=== PATIENT | female | born 1970 | race Two or more races ===

== ENCOUNTER 2017-05-03 05:28 | Day surgery (SDC) | payer MEDICAID ==
[~2017-05-03] VITALS: Ht 160 cm; Wt 80.7 kg
[~2017-05-03 05:28] MED LIST: ASPI-515 PO; CETI10TA24 PO; Collagen PO; DETOX PO; HYDR-3240 PO; MECL25TA4 PO; MULT-230 PO; NAPR500T3 PO; ONDA4TAB13 SL; OXYC1TAB7 PO; SIMV10TA3 PO; [UNRECOGNIZED DRUG - OTHER] PO; [UNRECOGNIZED DRUG - OTHER] PO
[2017-05-03] MEDS ORDERED: LACTATED RINGERS 1,000 ML IV SCH (06:12)
[2017-05-03] MEDS ORDERED: BUPIVACAINE/PF-EPI 0.25% 1:200K ONE ×2 (06:27→08:14)
[2017-05-03] MEDS ORDERED: FLUORESCEIN SODIUM 500 MG/5 ML ONE (06:27)
[2017-05-03 06:34] VITALS: BP 119/80
[2017-05-03] MEDS ORDERED: FENTANYL PF 100 MCG/2ML ONE ×2 (06:52→09:25)
[2017-05-03] MEDS ORDERED: MIDAZOLAM 1 MG/ML, 2ML ONE (06:52)
[2017-05-03] MEDS ORDERED: HYDROmorphone 2 MG/ML, 1ML ONE (06:52)
[2017-05-03] MEDS ORDERED: SUCCINYLCHOLINE 20 MG/ML, 10ML ONE (07:06)
[2017-05-03] MEDS ORDERED: ONDANSETRON 2MG/ML, 2ML ONE ×2 (07:06→11:45)
[2017-05-03] MEDS ORDERED: PROPOFOL 10 MG/ML, 20ML ONE (07:06)
[2017-05-03] MEDS ORDERED: CEFAZOLIN 1,000 MG ONE (07:06)
[2017-05-03] MEDS ORDERED: ROCURONIUM 10 MG/ML ONE (07:06)
[2017-05-03] MEDS ORDERED: DEXAMETHASONE 4 MG/ML, 1ML ONE (07:06)
[2017-05-03] MEDS ORDERED: KETOROLAC 30 MG/1 ML ONE (07:06)
[2017-05-03] MEDS ORDERED: HYDROmorphone 1 MG/ML, 1ML IV PRN (07:30)
[2017-05-03] MEDS ORDERED: LABETALOL 5MG/ML, 20ML IV PRN (07:30)
[2017-05-03] MEDS ORDERED: ACETAMINOPHEN 325 MG TABLET PO PRN (07:30)
[2017-05-03] MEDS ORDERED: OXYcodone 5 MG/5 ML ORAL.SOL UDC PO PRN (07:30)
[2017-05-03] MEDS ORDERED: METOCLOPRAMIDE 5 MG/ML, 2ML IV PRN (07:30)
[2017-05-03] MEDS ORDERED: ONDANSETRON 2MG/ML, 2ML IVPush PRN ×2 (07:30→12:00)
[2017-05-03] MEDS ORDERED: hydrALAzine 20 MG/ML, 1ML IV PRN (07:30)
[2017-05-03] MEDS ORDERED: ACETAMINOPHEN 650 MG/20.3 ML UDC ONE (09:25)
[2017-05-03] MEDS ORDERED: OXYcodone 5 MG/5 ML ORAL.SOL UDC ONE (09:25)
[2017-05-03] MEDS: FENTANYL PF 100 MCG/2ML IV PRN ×3 (09:28→10:05)
[2017-05-03] MEDS ORDERED: OXYcodone/APAP 5/325MG TABLET PO PRN (12:00)
[2017-05-03] MEDS ORDERED: IBUPROFEN 600 MG TABLET PO SCH (16:00)
== END 2017-05-03 13:50 ==
LOC: OUT 05:28 → MERGE 07:00 → OUT 13:50
PROVIDERS: ATTEND Obstetrics & Gynecology
DX: D25.9 Leiomyoma of uterus, unspecified (principal); N94.89 Other specified conditions associated with female genital organs and menstrual cycle; Z98.51 Tubal ligation status; E66.9 Obesity, unspecified; Z68.31 Body mass index [BMI] 31.0-31.9, adult
CPT/HCPCS: 58552; 88307; J0330; J0690; J1100; J1170; J1885; J2250; J2405; J2704; J3010; J7120; S2900

== ENCOUNTER 2017-12-17 13:28 | Emergency (ER) | payer MEDICAID, OTHER ==
[~2017-12-17] VITALS: Ht 162.6 cm; Wt 85.0 kg
[~2017-12-17 13:28] MED LIST changes: +NAPR-685 PO; -NAPR500T3 PO
[2017-12-17] MEDS ORDERED: MECLIZINE CHEWABLE 25 MG TAB ONE (14:50)
[2017-12-17] MEDS ORDERED: METOCLOPRAMIDE 5 MG/ML, 2ML ONE (14:51)
[2017-12-17] MEDS ORDERED: DIPHENHYDRAMINE 50 MG/ML, 1ML ONE (14:51)
[2017-12-17] MEDS ORDERED: METOCLOPRAMIDE 5 MG/ML, 2ML IVPush ONE (15:00)
[2017-12-17] MEDS ORDERED: DIPHENHYDRAMINE 50 MG/ML, 1ML IVPush ONE (15:00)
[2017-12-17] MEDS ORDERED: SODIUM CHLORIDE FLUSH 10ML SYR IVF ONE (15:00)
[2017-12-17] MEDS ORDERED: MECLIZINE CHEWABLE 25 MG TAB PO ONE (15:00)
[2017-12-17] MEDS ORDERED: SODIUM CHLORIDE 0.9% 1,000ML IVBOLUS ONE (15:00)
[2017-12-17 15:17] LABS: BASOPHILS # (AUTO) 0.04 x10^3/uL (0-0.1); BASOPHILS % (AUTO) 1 % (0-1); EOSINOPHILS # (AUTO) 0.05 x10^3/uL (0-0.4); EOSINOPHILS % (AUTO) 1 % (1-7); LYMPHOCYTES # (AUTO) 2.06 x10^3/uL (1-3.4); LYMPHOCYTES % (AUTO) 27 % (22-44); MD NO; MEAN CORPUSCULAR HEMOGLOBIN 29.9 pg (27.0-34.8); MEAN CORPUSCULAR HGB CONC 33.8 g/dL (32.4-35.8); MEAN CORPUSCULAR VOLUME 88.6 fL (80-100); MEAN PLATELET VOLUME 7.6 fL (7.4-10.4); MONOCYTES # (AUTO) 0.31 x10^3/uL (0.2-0.8); MONOCYTES % (AUTO) 4 % (2-9); NEUTROPHILS # (AUTO) 5.12 x10^3/uL (1.8-6.8); NEUTROPHILS % (AUTO) 68 % (42-75); PLATELET COUNT 302 x10^3/uL (130-400); RED BLOOD COUNT 4.98 x10^6/uL (3.82-5.3); RED CELL DISTRIBUTION WIDTH 12.9 % (9.6-15.2)
[2017-12-17 15:19] LABS: ALANINE AMINOTRANSFERASE 25 U/L (12-78); ALBUMIN 3.9 g/dL (3.4-5.0); ANION GAP 7 mmol/L (5-15); CALCIUM 9.2 mg/dL (8.5-10.1); CHLORIDE 107 mmol/L (98-107); CREATININE 0.73 mg/dL (0.55-1.02)
[2017-12-17 15:21] LABS: ALKALINE PHOSPHATASE 94 U/L (45-117); BILIRUBIN,TOTAL 0.4 mg/dL (0.2-1.0); TOTAL PROTEIN 8.4 g/dL (6.4-8.2)
[2017-12-17 15:44] LABS: MICROSCOPIC NOT IND
[2017-12-17 15:49] LABS: CULTURE INDICATED? NO
[2017-12-17 16:15] VITALS: BP 113/53
== END 2017-12-17 16:40 | disposition home or self-care (01) ==
LOC: ED 16:02
DX: R51 Headache (principal); R42 Dizziness and giddiness; H93.12 Tinnitus, left ear; R11.2 Nausea with vomiting, unspecified
CPT/HCPCS: 36415; 70450; 80053; 81003; 85025; 93005; 96361; 96374; 99285; J1200; J2765; J7030

== ENCOUNTER 2017-12-19 09:57 | Inpatient (IN) | payer OTHER ==
[~2017-12-19] VITALS: Ht 160 cm; Wt 83.1 kg
[2017-12-19 10:59] LABS: ALBUMIN 3.8 g/dL (3.4-5.0); ANION GAP 5 mmol/L (5-15); CALCIUM 8.9 mg/dL (8.5-10.1); CHLORIDE 110 mmol/L (98-107)
[2017-12-19 11:05] LABS: ALANINE AMINOTRANSFERASE 21 U/L (12-78); ALKALINE PHOSPHATASE 95 U/L (45-117); BILIRUBIN,TOTAL 0.3 mg/dL (0.2-1.0); CREATININE 0.69 mg/dL (0.55-1.02); TOTAL PROTEIN 8.5 g/dL (6.4-8.2); TROPONIN I < 0.015 ng/mL (0.000-0.045)
[2017-12-19 12:21] LABS: BASOPHILS # (AUTO) 0.02 x10^3/uL (0-0.1); BASOPHILS % (AUTO) 0 % (0-1); EOSINOPHILS # (AUTO) 0.09 x10^3/uL (0-0.4); EOSINOPHILS % (AUTO) 2 % (1-7); LYMPHOCYTES # (AUTO) 1.97 x10^3/uL (1-3.4); LYMPHOCYTES % (AUTO) 35 % (22-44); MD NO; MEAN CORPUSCULAR HGB CONC 33.8 g/dL (32.4-35.8); MEAN CORPUSCULAR VOLUME 88.7 fL (80-100); MEAN PLATELET VOLUME 7.7 fL (7.4-10.4); MONOCYTES # (AUTO) 0.23 x10^3/uL (0.2-0.8); MONOCYTES % (AUTO) 4 % (2-9); NEUTROPHILS # (AUTO) 3.33 x10^3/uL (1.8-6.8); NEUTROPHILS % (AUTO) 59 % (42-75); PLATELET COUNT 270 x10^3/uL (130-400); RED BLOOD COUNT 4.69 x10^6/uL (3.82-5.3); RED CELL DISTRIBUTION WIDTH 12.6 % (9.6-15.2)
[2017-12-19] MEDS ORDERED: OXYcodone/APAP 5/325MG TABLET ONE (12:50)
[2017-12-19] MEDS ORDERED: OXYcodone/APAP 5/325MG TABLET PO ONE (13:00)
[2017-12-19] MEDS ORDERED: ONDANSETRON ODT 4 MG PO PRN (15:00)
[2017-12-19] MEDS ORDERED: ONDANSETRON 2MG/ML, 2ML IVPush PRN (15:00)
[2017-12-19] MEDS ORDERED: KETOROLAC 30 MG/1 ML IVPush PRN (15:00)
[2017-12-19] MEDS ORDERED: ACETAMINOPHEN 325 MG TABLET PO PRN (15:00)
[2017-12-19] MEDS ORDERED: METHOCARBAMOL 500 MG TABLET PO ONE (15:00)
[2017-12-19 15:21] LABS: FREE T4 (FREE THYROXINE) 0.95 ng/dL (0.76-1.46); THYROID STIMULATING HORMONE 2.15 mIU/L (0.358-3.740)
[2017-12-19 15:52] VITALS: BP 116/80
[2017-12-19] MEDS: METHOCARBAMOL 750 MG TABLET PO SCH ×2 (16:00→21:37)
[2017-12-19] MEDS: SODIUM CHLORIDE 0.9% 1,000 ML IV SCH ×2 (16:40→23:50)
[2017-12-19] MEDS ORDERED: MECL-76 PO (16:46)
[2017-12-19] MEDS ORDERED: IBUP200T64 PO (16:46)
[2017-12-19] MEDS ORDERED: NITROGLYCERIN 0.4 MG BOTTLE (25 TABS) SL PRN (17:00)
[2017-12-19] MEDS ORDERED: NITROGLYCERIN 0.4 MG/SPRAY SL PRN (17:00)
[2017-12-19] MEDS ORDERED: ENOXAPARIN 40 MG/0.4 ML SQ SCH (17:30)
[2017-12-19 17:35] LABS: TROPONIN I < 0.015 ng/mL (0.000-0.045)
[2017-12-19] MEDS: METOCLOPRAMIDE 5 MG/ML, 2ML IVPush PRN (18:22)
[2017-12-19] MEDS: DIPHENHYDRAMINE 50 MG/ML, 1ML IVPush PRN (18:22)
[2017-12-19 20:00] VITALS: BP 100/64
[2017-12-19] MEDS ORDERED: MECLIZINE CHEWABLE 25 MG TAB PO PRN (20:00)
[2017-12-19 21:00] LABS: HEMOGLOBIN A1C 6.6 % (4.2-6.3)
[2017-12-19 23:23] LABS: TROPONIN I < 0.015 ng/mL (0.000-0.045)
[2017-12-20 03:10] VITALS: BP 109/73
[2017-12-20] MEDS: METOCLOPRAMIDE 5 MG/ML, 2ML IVPush PRN (03:22)
[2017-12-20] MEDS: DIPHENHYDRAMINE 50 MG/ML, 1ML IVPush PRN (03:23)
[2017-12-20] MEDS: METHOCARBAMOL 750 MG TABLET PO SCH ×2 (05:53→12:51)
[2017-12-20] MEDS ORDERED: ASPIRIN 325 MG TABLET EC PO SCH (06:00)
[2017-12-20 06:05] LABS: BASOPHILS # (AUTO) 0.06 x10^3/uL (0-0.1); BASOPHILS % (AUTO) 1 % (0-1); EOSINOPHILS # (AUTO) 0.11 x10^3/uL (0-0.4); EOSINOPHILS % (AUTO) 2 % (1-7); LYMPHOCYTES # (AUTO) 2.42 x10^3/uL (1-3.4); LYMPHOCYTES % (AUTO) 45 % (22-44); MD NO; MEAN CORPUSCULAR HGB CONC 33.9 g/dL (32.4-35.8); MEAN CORPUSCULAR VOLUME 88.4 fL (80-100); MEAN PLATELET VOLUME 7.3 fL (7.4-10.4); MONOCYTES # (AUTO) 0.32 x10^3/uL (0.2-0.8); MONOCYTES % (AUTO) 6 % (2-9); NEUTROPHILS # (AUTO) 2.52 x10^3/uL (1.8-6.8); NEUTROPHILS % (AUTO) 46 % (42-75); PLATELET COUNT 250 x10^3/uL (130-400); RED BLOOD COUNT 4.18 x10^6/uL (3.82-5.3); RED CELL DISTRIBUTION WIDTH 12.6 % (9.6-15.2)
[2017-12-20 06:19] LABS: ANION GAP 5 mmol/L (5-15); CALCIUM 8.2 mg/dL (8.5-10.1); CHLORIDE 111 mmol/L (98-107)
[2017-12-20 06:22] LABS: ALANINE AMINOTRANSFERASE 19 U/L (12-78); ALKALINE PHOSPHATASE 69 U/L (45-117); BILIRUBIN,TOTAL 0.4 mg/dL (0.2-1.0); CHOLESTEROL, TOTAL 180 mg/dL (140-239); CREATININE 0.69 mg/dL (0.55-1.02); HDL CHOL % 20 % (28-40); HDL CHOLESTEROL (DIRECT) 36 mg/dL (40-60); LDL CHOLESTEROL,CALCULATED 118 mg/dL (54-169); LDL/HDL RATIO 3.3 (0.5-3.0); TOTAL PROTEIN 6.9 g/dL (6.4-8.2); TRIGLYCERIDES 130 mg/dL (50-200); VLDL CHOLESTEROL 26 mg/dL (0-25)
[2017-12-20 07:20] VITALS: BP 115/75
[2017-12-20] MEDS ORDERED: REGADENOSON 0.4 MG/5 ML SYRINGE ONE (09:11)
[2017-12-20 14:00] VITALS: BP 113/65
[2017-12-20] MEDS ORDERED: METH750T2 PO (15:31)
== END 2017-12-20 17:05 | disposition home or self-care (01) | DRG 313 ==
LOC: ED 13:02 → EDIP 13:03 → ED 13:36 → 5SO 15:42 → DCLOUNGE 12-20 16:50
PROVIDERS: ADMIT Hospitalist; ATTEND Hospitalist
DX: R07.89 Other chest pain (principal); E78.5 Hyperlipidemia, unspecified; I10 Essential (primary) hypertension; R51 Headache; R73.9 Hyperglycemia, unspecified; Z82.49 Family history of ischemic heart disease and other diseases of the circulatory system; Z86.73 Personal history of transient ischemic attack (TIA), and cerebral infarction without residual deficits; Z90.710 Acquired absence of both cervix and uterus
CPT/HCPCS: 36415; 71045; 78452; 80053; 80061; 83036; 83880; 84439; 84443; 84484; 85025; 93005; 93017; 99285; J1650; J2785; A9502; C9898; J1200; J2765; J7030

== ENCOUNTER → 2018-05-22 | Outpatient (CLI) | payer OTHER ==
[~2018-05-22] MED LIST changes: +IBUP200T64 PO; +MECL-76 PO; +METH750T2 PO
== END | disposition home or self-care (01) ==
LOC: CFH 09:15
PROVIDERS: ATTEND Otolaryngology
DX: H90.3 Sensorineural hearing loss, bilateral (principal); R42 Dizziness and giddiness
CPT/HCPCS: 70480